=== PATIENT | male | born 1975 | race Caucasian/White ===

== ENCOUNTER 2018-12-23 07:02 | Outpatient (CLI) | payer BC ==
--- NOTE | 2018-12-23 09:25 | ULT ---
ABDOMEN ULTRASOUND: Date: 12/23/18 HISTORY: Nausea and vomiting x1 month. Change in bowel. COMPARISON: None. FINDINGS: Visualized aorta is unremarkable. Pancreas obscured by bowel gas. Visualized IVC grossly unremarkable. Increased echogenicity of the liver may be due to hepatic steatosis or hepatocellular disease. Subseq uently limited evaluation for hepatic masses and intrahepatic biliary dilatation. Right hepatic lobe measures 18.0 cm. Main portal vein is patent. Appropriate direction of flow. Suboptimal evaluation of the common bile duct. No sonographic evidence of cholelithiasis, gallbladder wall thickening, or pericholecystic fluid. Neg ative Vargas's sign. Kidneys have a normal cortical echotexture. Bilaterally, no hydronephrosis. Right kidney measures 11. 4 x 5.5 x 5.9 cm. Left kidney measures 6.2 x 12.8 x 5.8 cm. Spleen has a normal echotexture, measuring 12.0 cm in dimension. IMPRESSION: 1. No sonographic evidence of cholelithiasis or cholecystitis. 2. Increased echogenicity of the liver which may be due to hepatic steatosis or hepatocellular disea se. If there is concern for hepatic masses, liver mass protocol CT is recommended. POS: [facility]
== END 2018-12-23 07:03 | disposition home or self-care (01) ==
LOC: SCSULT 07:02
PROVIDERS: ATTEND Family Medicine
DX: R10.10 Upper abdominal pain, unspecified (principal)
CPT/HCPCS: 93975

== ENCOUNTER 2020-04-21 17:50 | Emergency (ER) | payer BC ==
[2020-04-21] MEDS ORDERED: Ketorolac Tromethamine 30 MG/ML VIAL ONE (18:39)
--- NOTE | 2020-04-21 18:58 | RAD ---
3 views left shoulder: 04/21/2020 COMPARISON: None HISTORY: Fall, trauma, pain FINDINGS: There is no widening of the acromioclavicular or coracoclavicular interspace. There is a pu nctate osseous density adjacent to the greater tuberosity which may signify calcific tendinosis. The scapular Y view demonstrates no evidence for dislocation. There is irregularity involving the humeral head superiorly which could be related to a Hill-Sachs fr acture on the basis of prior dislocation. IMPRESSION: No dislocation. Possible Hill-Sachs fracture.
== END 2020-04-21 19:30 | disposition home or self-care (01) ==
LOC: ERS 17:50
DX: S42.292A Other displaced fracture of upper end of left humerus, initial encounter for closed fracture (principal); W19.XXXA Unspecified fall, initial encounter; F17.210 Nicotine dependence, cigarettes, uncomplicated
CPT/HCPCS: 96372; J1885